=== PATIENT | male | born 2000 | race Caucasian/White ===

== ENCOUNTER 2024-12-16 04:46 | Emergency (ER) | payer MEDICAID, OTHER ==
[~2024-12-16] VITALS: Ht 180.3 cm; Wt 116.2 kg
[2024-12-16 04:48] VITALS: O2SAT 97
[2024-12-16] MEDS: IBUPROFEN 600MG TABLET PO ONE (06:41)
[2024-12-16 06:53] VITALS: BP 135/87; PULSE 85; RESP 18; TEMP 36.9; O2SAT 97
== END 2024-12-16 06:59 | disposition home or self-care (01) ==
LOC: ER 05:10
DX: S42.293A Other displaced fracture of upper end of unspecified humerus, initial encounter for closed fracture (principal); Z90.49 Acquired absence of other specified parts of digestive tract; Z88.5 Allergy status to narcotic agent; W01.0XXA Fall on same level from slipping, tripping and stumbling without subsequent striking against object, initial encounter; Y93.89 Activity, other specified; Y92.89 Other specified places as the place of occurrence of the external cause; Y99.8 Other external cause status
CPT/HCPCS: 73030; 99283